=== PATIENT | female | born 1940 | race Caucasian/White ===

== ENCOUNTER 2022-02-18 09:23 | Outpatient (CLI) | payer OTHER, SELFPAY ==
[2022-02-18 10:34] LABS: Creatinine* 0.9 mg/dL (0.5-1.5); Estimated Glomerular Filt Rate 64 ml/min
== END 2022-02-18 09:24 | disposition home or self-care (01) ==
LOC: LKVREF 09:24
PROVIDERS: PCP Internal Medicine; Visit Provider Family Medicine
DX: Z79.899 Other long term (current) drug therapy (principal); J06.9 Acute upper respiratory infection, unspecified; J45.901 Unspecified asthma with (acute) exacerbation
CPT/HCPCS: 82565

== ENCOUNTER 2022-06-25 14:50 | Outpatient (CLI) | payer OTHER, SELFPAY ==
--- NOTE | 2022-06-25 15:00 | CRLHL7_ITS ---
For Patients: As a result of the Century Cures Act, medical imaging exams and procedure reports are released immediately into your electronic medical record. You may view this report before your referring provider. If you have questions, please contact your health care provider. INDICATION: Left lower extremity edema and pain TECHNIQUE: Ultrasound venous duplex lower left extremity. Compression venous exam was performed using mccann-scale, color Doppler, and spectral Doppler analysis. COMPARISON: None FINDINGS: Sonographic imaging demonstrates the left common femoral, deep femoral, superficial femoral, popliteal, posterior tibial and greater saphenous and the contralateral right common femoral veins to be fully compressible with normal color Doppler blood flow. 4.4 centimeter x 0.4 centimeter x 4.3 centimeter fluid lateral to the left lower leg. IMPRESSION: Normal left lower extremity venous ultrasound, no sign of deep venous thrombosis. 0.4 centimeter x 0.4 centimeter x 4.3 centimeter fluid adjacent to the left lateral lower leg. Dictated by Boyd Viera MD @ 06/25/2022 4:16:12 PM Dictated by: Boyd Viera MD @ 06/25/2022 16:16:18 (Electronically Signed)
== END 2022-06-25 14:51 | disposition home or self-care (01) ==
LOC: US 14:52
PROVIDERS: PCP Internal Medicine; Visit Provider Student in an Organized Health Care Education/Training Program
DX: R60.0 Localized edema (principal); M79.662 Pain in left lower leg
CPT/HCPCS: 93971

== ENCOUNTER 2022-07-14 16:46 | Outpatient (CLI) | payer OTHER, SELFPAY ==
[2022-07-14 14:28] LABS: Chloride* 108 mmol/L (96-114); Potassium* 4.2 mmol/L (3.6-5.1); Sodium* 139 mmol/L (135-149)
[2022-07-14 14:30] LABS: Creatinine* 0.8 mg/dL (0.5-1.5); Estimated Glomerular Filt Rate 74 ml/min
[2022-07-14 14:31] LABS: Blood Urea Nitrogen* 28 mg/dL (7-30); Calcium* 9.3 mg/dL (8.4-10.6); Carbon Dioxide* 26 mmol/L (20-32); Glucose* 121 mg/dL (60-115)
== END 2022-07-14 16:47 | disposition home or self-care (01) ==
PROVIDERS: PCP Internal Medicine; Visit Provider Internal Medicine
DX: E03.9 Hypothyroidism, unspecified (principal); I10 Essential (primary) hypertension; E11.9 Type 2 diabetes mellitus without complications; E66.9 Obesity, unspecified; I89.0 Lymphedema, not elsewhere classified
CPT/HCPCS: 80048; 84443

== ENCOUNTER 2023-01-20 13:00 | Outpatient (RCR) | payer OTHER, SELFPAY ==
--- NOTE | 2022-08-12 18:47 | OT.OPLE ---
OT Outpatient Lymphedema Eval OT Outpatient Lymphedema Eval Start: 08/11/22 16:49 Freq: Status: Active Protocol: Document 08/12/22 10:19 AMB (Rec: 08/12/22 18:42 AMB [id number]) E-signed By Lary Whyte, OTR/L, CLT, RAG BALER OT Outpatient Evaluation Details Type Type Eval Complexity Medium OT OP Lymphedema Evaluation Insurance Information Insurance Information Medicare B Current Condition/Medical Diagnosis Referring Provider Ina Rosas Treatment Diagnosis BLE lymphedema Date Of Onset Chronic Medical Contraindications DM,HTN,CA,Respiratory, Fibromyalgia,Arthritis Current Work Status Current Work Status Retired Subjective Subjective Pt states she has had swelling in her lower legs for approximately 8 years R>L. Pt states the swelling has been accompanied by pain, especially with pressure or squeezing. Pt states she has had cellulites several times in her LLE, not sure about the RLE. Pt does have a bill on her LLE just above her ankle, states she bumped it years abo and ended up with a hematoma and it left a permanent bill. Pt states her RLE is always red down in the lower part just above her ankle. Pt was seen in the Urgent care on with complaints of pain in her LLE, states they ruled out a DVT and cellulitis and just told her to wrap her legs . Pt has been wrapping both of her lower legs with an KATHY bandage, states they do feel better and she feels it helps the swelling some. P states her legs are always swollen but not her feet and the swelling worsens as the day progresses. Medical History Medical History Obesity,DM,HTN,Asthma/ Respiratory Disorder Medical History Comments PMH copied from MD visit on : Type 2 diabetes mellitus ( Acute) E11.9 Prediabetes Dxed 07/18, progressed to Diabetes type 2 07/19 Lymphedema of both lower extremities (Acute) I89.0 OT consult ordered 07/19 Hypothyroidism (Acute 04/19/11 ) E03.9 Fibromyalgia (Acute 04/19/11) M79.7 Esophageal dysmotility (Acute) K22.4 Delayed esophageal motility with tertiary distal esophageal contractions along with a tiny hiatal hernia seen on barium esophagram 11/14, structural defect ruled out by EGD here 12/15 that showed erythematous mucosa of the stomach and biopsies showed non erosive reactive gastropathy. Postnasal drip (Acute) R09.82 Chronic Obstructive sleep apnea syndrome (Acute 04/19/11) G47. 33 on CPAP (outside sleep study ), new machine 05/13 Chronic low back pain (Acute 04/19/11) M54.50, G89.29 Asthma (Acute 2010) J45.909 Dxed 2010 Anxiety (Acute 04/19/11) F41.9 Chronic, on SSRI since 2010, tapering off SSRI 11/11 Morbid obesity with body mass index (BMI) of 40.0 or higher (Acute) E66.01 History of breast cancer ( Acute) Z85.3 s/p left sided breast cancer with bilateral mastectomy late 2009 Essential hypertension (Acute) I10 Migraine (Acute) G43.909 Medical History (Updated 07/19 @ 11:54 by Ina Rosas MD) History of peptic ulcer (2014) History of sepsis (2010) Allergies bee venom protein (honey bee) Allergy (Verified 07/19/22 11: 06) corn Allergy (Verified 11:06) dog dander Allergy (Verified 07/19/22 11:06) phenylephrine [From Herbert- Synephrine (phenylephrine)] Allergy (Verified 07/19/22 11: 06) Swelling ragweed pollen Allergy ( Verified 07/19/22 11:06) tomato Allergy (Verified 07/19 11:06) Dust mites Allergy (Uncoded 11:06) Soybean oil Allergy (Uncoded 07/19/22 11:06) Surgical History Surgical History Surgical History (Updated @ 09:31 by Ina Rosas MD) History of basal cell carcinoma excision History of cholecystectomy () History of dilation and curettage (04/19/11) History of laminectomy () History of repair of rectocele (2018) History of thumb surgery (03/15) History of tonsillectomy (20/05) History of total knee replacement (2004) History of total shoulder replacement (2017) Rotator cuff tear arthropathy of right shoulder (2014) Squamous cell carcinoma in situ (SCCIS) of skin (2018) Status post cataract extraction (2015) Status post lumbar spinal fusion (04/19/11) Hx of Breast Cancer with mastectomy BLE TKA Medications Medications amiloride-hydrochlorothiazide 5-50 mg 0.5 tabs PO QDAY amitriptyline 20 mg (2 x 10 mg ) PO QHS qtdeuyz-xhqnxonlvaobj-xsmdjgog 250-250-65 mg 1 tab PO Q6H PRN atenolol 50 mg PO QDAY calcium carbonate 600 mg PO BID capsaicin 0.1% 0.1 applic topical .As Needed PRN epinephrine 0.3 mg (0.3 mL) IM ONCE PRN esomeprazole magnesium 40 mg PO BID fexofenadine 180 mg PO DAILY fluticasone propionate 50 mcg/ actuation 1 intranasal BID gabapentin 300 mg PO BID gabapentin 600 mg PO QHS hylbstut-xobitrwyzlr-lie C-Mn PO DAILY Lactobacillus acidophilus 10 mg PO QDAY levothyroxine 100 mcg PO QDAY melatonin 20 mg PO .Bedtime as needed PRN mometasone-formoterol 200-5 mcg/actuation (Dulera) 2 puffs inhalation BID montelukast 10 mg PO QDAY multivitamin (Multiple Vitamins tablet) 1 tab PO QAM olopatadine 0.1% 1 drp ophthalmic (eye) QDAY potassium chloride ER 20 mEq ( 2 x 10 mEq) PO QDAY pumpkin seed extract-soy germ 300 mg (Azo Bladder Control) caps PO DAILY sumatriptan succinate 50 mg PO Q2H PRN turmeric 630 mg PO DAILY Family History Family History of Lymphedema No Living Situation Current Living Situation Sr Condo Current Living Situation Comments Pt lives alone, lost her in 2008, pt has a son close by who is attentive, also has another son and daughter not in the area. Patient Difficulties Difficulties With Any Of The Following Walking Patient Difficulties Comments Pt states her walking has been harder with the swelling in her legs as they are heavy and rub. Pt uses a FWW for gait. Pt has had PT in the past to work on LE strength, balance, gait. Exercise History Does Patient Exercise Regularly Yes Exercise Comments Pt has a Nu-Step in her home, uses it 5-6x week on level 8-9 x 40 minutes. Pain Pain Yes Pain Comments Pt has pain with pressure / squeezing of her legs. Pain is much better with wraps on. Loss of Function/Strength/Mobility Loss Of Function/Strength/Mobility Yes Loss Of Function/Strength/Mobility Pt reports difficulty with Comments mobility due to the size of her legs. Previous Treatment Previous Treatment/Current Home Program KATHY wraps only Compression History Does Patient Currently Wear Compression Yes During Daytime Compression During Daytime Comments KATHY wraps Does Patient Currently Wear Compression No At Night Current Swelling (Location/Pitting/Texture) Pitting Scale: 0 = No pitting 1+ Tissue returns to normal almost immediately 2+ Tissue returns after 15-30 seconds 3+ Tissue returns after 1-1/2 minutes 4+ Tissue returns after 2-3 minutes N/A Tissue no longer pits due to induration Tissue texture: Soft or indurated Clinical Presentation Area BLE, much worse from ankles to the knee, feet are spared. Pt has a large ankle cuff in BLE . Multiple papillomas are noted throughout BLE, mild fibrosis in the lower part of the legs, near the ankle. Clinical Presentation Pitting Pt does not have pitting edema . Lower part of RLE is red, not necessarily warm to the touch, pt states It always looks like that. 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 Triggering Event & Start Date of Unknown. Swelling/Lymphedema Type of Swelling Primary Staging Staging Stage 3 Circumferential Measurements Lower Extremity Left Lower Extremity MPT 21.5 Calcaneous 29.8 Ankle 25.8 10cm 50.2 20cm 57.5 30cm 60.8 40cm 65.5 Total 311.1 Right Lower Extremity MPT 21.5 Calcaneous 29.6 Ankle 26.0 10cm 52.0 20cm 58.5 30cm 62.0 40cm 68.5 Total 318.1 Assessment Assessment Pt presents to OT with stage 3 lymphedema in BLE with likely mix of lipedema as well based on the sxs of pain with pressure, ankle sparing, and pt's body type with BMI of 52. 3. Pt has had multiple episodes of cellulitis and is at high risk for recurrent cellulitis without treatment. Pt is also at risk for further lymphedema related complications and feels her lymphedema has made walking more of a challenge and she had previous issues with balance. Pt will benefit from skilled OT intervention to reduce swelling in BLE as well as to establish home program that includes exercise, compression, and skin care for LT self management of her chronic disease. Impairments Impairments Loss of Mobility,Limb Heaviness,Poor Clothing Fit Problem List Problem List Limited Knowledge of Lymphedema Treatment/Condition /Precautions,Limited Knowledge of Skin Care & Infection Precautions,Significant Risk For Infection For Lymphedema Related Complications,Does Not Have a HEP,Does Not Know How To Bandage For Limb Reduction, Does Not Have Appropriate Compression Garments For LT Management,Presents With Increased Fall Risk Secondary To Lymphedema,Presents With Impaired Mobility/ROM Patient Goals Short Term Goals (# of Weeks) 8 Click To Default Short Term Goals Standard Goals Short Term Goals Goal 1: Patient and or caregiver will understand lymphedema precautions to decrease risk of infection and further lymphedema related complications Goal 2: Patient will develop a tolerance for wearing multi-layer, short stretch bandages between treatment sessions to facilitate limb decongestion Goal 3: Patient will be independent and compliant with HEP to improve lymphatic flow in BLE. Drum Filler Goals (# of Weeks) 12 Click To Default Alf Goals Standard Goals Drum Filler Goals Goal 1: Patient and/or caregiver will be independent with short-stretch compression bandaging for continued volume reduction and prevention of recurrence 2. Pt will obtain appropriate compression garment for LT management of her lymphedema. Goal 3: Patient will be independent with donning and doffing of compression garments which will enable regular daily garment wear Goal 4: Patient will achieve a reduction of at least 10cm from total measurements in BLE to enable functional improvements such as fitting into standard sized clothing and shoes, return to a prior level of functional mobility, improved balance, and reduced risk of falling. Goal 5: Patient and/or caregiver will be independent with HEP, skin care routine, self monitoring and lymphedema management to reduce risk for edema relapse and to reduce risk for infection Treatment Plan Treatment Plan Evaluation,Edema Control, Manual Therapy,Therapeutic Exercise,Therapeutic Activities,Self-Care/Home Management,Caregiver Training, Education Expected Frequency 2-3x Week Expected Duration 10-12 wks Certification Certification I Certify That: Therapy Services Provided, Therapy Plan Established, Therapy Plan Reviewed Recertification Information Recertification Information Initial Certification Date 08/12/22 Recertification Due Date 11/10/22 Reasons to Continue Skilled Therapy Initiated skilled OT intervention today to address lymphedema in BLE with high risk for cellulitis and further lymphedema related complications. Heaviness in pt's LEs also increases her fall risk, especially since she requires a walker for mobility. Rehabilitation Potential Good Continued Plan of Care and Interventions See above Provider Signature Shows Agreement With POC & Medical Necessity Physician Comment/Change Comment or Changes Physician NPI Number #
== END 2023-05-20 23:59 | disposition home or self-care (01) ==
PROVIDERS: PCP Internal Medicine; Visit Provider Internal Medicine
DX: I89.0 Lymphedema, not elsewhere classified (principal); Z51.89 Encounter for other specified aftercare
CPT/HCPCS: 97110; 97140; 97166; 97530; 97535; X5282

== ENCOUNTER 2023-08-16 13:00 | Outpatient (RCR) | payer OTHER, SELFPAY ==
--- NOTE | 2023-03-18 15:42 | PT.OPEX ---
PT [place] Outpatient Eval PT [facility] Outpatient Eval Start: 03/16/23 14:48 Freq: Status: Active Protocol: Document 03/16/23 14:53 OSIEL (Rec: 03/16/23 17:23 OSIEL [id number]) E-signed By Eleanor Damon PT Physical Therapy Outpatient Evaluation Insurance Information Recert Due Date 06/13/23 Insurance Name Medicare B Insurance Information/Comments HUMAN GOLD Medical Diagnosis RIGHT GROIN STRAIN Treating Diagnosis RIGHT HIP/GROIN PAIN IMPAIRED MOBILITY IMPAIRED BALANCE DECREASED STRENGTH Subjective Subjective PATIENT REPORTS A SUDDEN CHANGE IN HER ABILITY TO RAISE HER RIGHT LEG D/T SIGNIFICANT PAIN IN HER GROIN. SHE STATES , I NOW HAVE TO USE THIS GAIT BELT TO GET IN/OUT OF WHOMEVER IS DRIVING ME THAT DAY B/C I CAN SAFELY DRIVE RIGHT NOW. SHE REPORTS NOT BEING ABLE TO PARTICIPATE IN HER REGULAR EXERCISE CLASS NOR STEP IN/OUT OF HER TUB. 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 PMHX INCLUDES BUT NOT LIMITED TO RIGHT HIP OA, LYMPHEDEMA, DMII, H/O BREAST CANCER (2010) W/ BILATERAL MASTECTOMY, HYPOTHYROIDISM, FIBROMYALGIA, KHUSHBU WITH CPAP, CHRONIC LBP, H/ O LUMBAR FUSION, ASTHMA, ANXIETY, HTN, H/O MIGRAINES, H /O RIGHT TSA, H/O BILATERAL TKA. SHE USES A ROLLATOR FOR AMB AND LIVES ALONE IN A ONE- STORY [place]DO W/O STEPS TO ENTER AND ALL HER NEEDS MET ON THAT ONE FLOOR. PATIENT REPORTS RECENT OVEREXERTION LIFTING HER RIGHT LEG RELATED TO AN EXACERBATION OF HER BLE LYMPHEDEMA AND EXPERIENCING PAIN IN HER GROIN/HIP REGION. SHE IS UNABLE TO LIFT HER LEG TO GET IN/OUT OF CAR, IN/OUT OF BED W/O A GAIT BELT TO ASSIST AND UNABLE TO STEP IN / OUT OF THE TUB REQUIRING HER TO CLEAN UP IN THE BATHROOM SINK. BOTH LEGS ARE RATHER LARGE D/T THE LYMPHEDEMA AND ROM ASSESSMENT IS DIFFICULT D/ T THE CONFINEMENT OF THE COMPRESSION GARMENTS. HER BLE STRENGTH IS 3/5. SHE HAD BEEN PARTICIPATING IN AN ORGANIZED EXERCISE CLASS BUT NOT ONLY IS SHE UNABLE TO PARTICIPATE BUT IS ALSO UNABLE TO SAFELY DRIVE REQUIRING ASSISTANCE FROM FRIEND TO DRIVE HER. HE IS UNABLE TO STRAIGHT HER RIGHT LEG >30 DEGREES IN A SEATED POSITION W/O SIGNIFICANT GROIN PAIN NOR IS SHE ABLE TO LIFT HER LEG IN A HOOKLYING POSITION OFF THE TABLE. SHE HAS NORMAL HIP MOTION WHEN PASSIVE STRETCH AND IS LIMITED SIMPLY BY PAIN AND NOW, WEAKNESS. SHE REPORTS IMPROVEMENT IN THE PAST 3 WEEKS BUT IS UNABLE TO USE ALEVE OR TYLENOL CONSISTENTLY D/T HER STOMACH ISSUES. SHE IS HERE TODAY TO IMPROVE HER SYMPTOMS, STRENGTH, AND FUNCTIONAL MOBILITY TO ALLOW HER TO RETURN TO HER PLOF. Primary Functional Limitations TRANSFERS (STS, SUPINE<>SIT, CAR, TUB) STDG >3-4 MIN STAIRS GAIT STRENGTH PAIN Plan of Care Rehabilitation Potential Good Physical Therapy Goals IN 4 WEEKS: 1. PATIENT WILL DEMONSTRATE IMPROVED BLE STRENGTH TO TRANSFER IN/OUT OF CAR W/O NEED FOR STRAP. 2. PATIENT WILL IMPROVE POSTURAL STRENGTH TO ALLOW HER TO STAND UPRIGHT CONSISTENTLY UPON STAND. 3. PATIENT WILL AMB 200FT W/ ROLLATOR NOTING IMPROVED FOOT CLEARANCE W/O SIT DOWN RECOVERY NEEDED. IN 8-10 WEEKS: 1. PATIENT WILL IMPROVE HER CORE AND BLE STRENGTH TO STAND FOR MEAL PREP AT THE STOVE TO ALLOW FOR BETTER NOURISHMENT. 2. PATIENT WILL IMPROVE STRENGTH TO ALLOW SAFE TRANFER IN/OUT OF TUB FOR BATHING INDEPENDENTLY 3. PATIENT WILL AMB FOR 6MIN WITH ROLLATOR SAFELY AND CONSISTENTLY TO ALLOW FOR LIMITED COMMUNITY AMB. 4. PATIENT WILL BE INDEPENDENT WITH HER HEP. Coordination/Communication With Referral Source Treatment Plan/Direct Interventions Joint Mobilization,Manual Therapy,Neuromuscular Re-ed, Therapeutic Activities, Therapeutic Exercises Patient Will Be Discharged From Therapy Completion of LTG(s), Independent w/HEP Discharge Plan Comments DISCHARGE TO SELF W/ INDEPENDENT HEP Evaluation Billing Untimed Code Treatment Minutes 25 PT Eval No Charge No Complexity High Certification Information Initial Certification Date 03/16/23 Ending Certification Date 06/13/23 Provider Signature Shows Agreement With POC & Medical Necessity Physician Signature & Date Requested Please Sign/Date Here Physician Comment/Change : Physician NPI Number #
--- NOTE | 2023-06-15 17:06 | PT.OPDNX ---
PT [place] Outpatient Daily Note PT [facility] Outpatient Daily Note Start: 03/16/23 14:48 Freq: Status: Active Protocol: Document 06/15/23 14:32 OSIEL (Rec: 06/15/23 17:05 OSIEL [id number]) E-signed By Eleanor Damon, PT PT OP Daily Progress Note Visit Information Note Type Recert/Progress Note Visit Number [id number] Insurance Information Recert Due Date 06/13/23 Insurance Name Medicare B Insurance Information/Comments HUMAN GOLD Medical Diagnosis RIGHT GROIN STRAIN Treating Diagnosis RIGHT HIP/GROIN PAIN IMPAIRED MOBILITY IMPAIRED BALANCE DECREASED STRENGTH Subjective Subjective PATIENT REPORTS, I'VE BEEN ABLE TO GET SOME SLEEP SO FEEL SO GOOD TODAY. Preferred Name DERRELL Precautions Treatment Precautions/Contraindications SELF WRAPPING AND PNEUMATIC DEVICE FOR HER LYMPHEDEMA TREATMENT, DMII Objective Functional Test Performed & Score TUSEC TINETTI 12/2205/23/23: TUG W/SPC 28SEC; 30 SEC STS 9 06/15/23: TUG W/SPC 22 SEC; ROQUE 30/56, GT SPEED NORMAL WALKING 1.2 FT/SEC, FAST WALKING 1.7 FT/SEC Physical Therapy Goals IN 4 WEEKS: 1. PATIENT WILL DEMONSTRATE IMPROVED BLE STRENGTH TO TRANSFER IN/OUT OF CAR W/O NEED FOR STRAP. GOAL MET 2. PATIENT WILL IMPROVE POSTURAL STRENGTH TO ALLOW HER TO STAND UPRIGHT CONSISTENTLY UPON STAND. GOAL MET 3. PATIENT WILL AMB 200FT W/ ROLLATOR NOTING IMPROVED FOOT CLEARANCE W/O SIT DOWN RECOVERY NEEDED. GOAL MET IN 8-10 WEEKS: 1. PATIENT WILL IMPROVE HER CORE AND BLE STRENGTH TO STAND FOR MEAL PREP AT THE STOVE TO ALLOW FOR BETTER NOURISHMENT. GOAL MET 2. PATIENT WILL IMPROVE STRENGTH TO ALLOW SAFE TRANSFER IN/OUT OF TUB FOR BATHING INDEPENDENTLY GOAL MET 3. PATIENT WILL AMB FOR 6MIN WITH ROLLATOR SAFELY AND CONSISTENTLY TO ALLOW FOR LIMITED COMMUNITY AMB. 4. PATIENT WILL BE INDEPENDENT WITH HER HEP. PARTIALLY MET RECERTIFICATION GOALS 06/15/23: IN 4-6 WEEKS: 1. PATIENT WILL AMB 200' W/O A RECOVERY BREAK NEEDED USING SPC FOR LIMITED COMMUNITY AMB, GROCERY SHOPPING, ETC. 2. PATIENT WILL DEMONSTRATE IMPROVED STRENGTH BY INCREASING HER STS FROM 9 TO 12 IN 30 SEC 3. PATIENT WILL DEMONSTRATE IMPROVED BALLANCE BY IMPROVING HER TUG BY 15% FROM 22 TO 19 SEC LTG WITH IN 10-12 WEEKS: 1. PATIENT WILL AMB 6 MIN W/O STDG RECOVERY BREAK AND A DISTANCE OF 400' FOR FULL COMMUNITY REENTRY. 2. PATIENT WILL IMPROVE FUNCTIONAL BALANCE BY INCREASING HER ROQUE SCORE OF 30 TO 40/56 3. PATIENT WILL IMPROVE HER IMPROVE HER TUG FROM 19 TO 15SEC DECREASING HER RISK FOR FALLS. Daily Plan of Care Continue per POC Recertification Information Initial Certification Date 03/16/23 Recertification Start Date 06/14/23 Recertification Due Date 06/13/23 Reasons to Continue Skilled Therapy DERRELL IS PARTICIPATING IN A COMPREHENSIVE AND INDIVIDUALIZED PROGRAM TO ADDRESS HER INITIAL RIGHT GROIN STRAIN RELATED TO AN EXACERBATION OF HER LYMPHEDEMA .THIS LIMITED HER ABILITY TO SAFELY AMB LIMITED COMMUNITY DISTANCES, INABILITY TO PERFORM CAR, BED, AND TUB TRANSFERS D/T THE INCREASED WEIGHT OF HER LEG AND STRAIN OF HER MUSCULATURE. SHE HAD BEEN AMB LIMITED DISTANCES WITH HER ROLLATOR AND PARTICIPATING LIMITED WITH HER EXERCISE CLASS D/T THE INABILITY TO PERFORM THE EXERCISES. SHE SINCE RETURNED TO THE CLASSES AND CAN PARTICIPATE FULLY WITH SEVERAL ADAPTATION AND IS ABLE TO INDEPENDENTLY PERFORM CAR AND BED TRANSFERS W/O THE USE OF STRAP. SHE HAS IMPROVED NOT ONLY IN HER STRENGTH BUT ALSO HER FUNCTIONAL BALANCE EVIDENCED BY A TUG SCORE OF 22 SEC USING A SPC FROM 72 SEC USING ROLLATOR AND FROM 3 TO 9 ON THE 30 SEC STS TEST. LASTLY, SHE SCORED A 30/56 ON THE ROQUE BALANCE TEST TODAY WHICH SHE HAS NOT BEEN ABLE TO PERFORM SAFELY UNTIL NOW. HOWEVER, HER SCORE CATEGORIZES HER A 100%RISK FOR FALLS AND IN NEED OF AN ASSISTIVE DEVICE FOR ALL AMB. WE ARE ABLE TO ADVANCE HER BLE AND CORE STRENGTHENING WELL ADD FUNCTIONAL BALANCE CHALLENGES EA VISIT. SHE DEMONSTRATES MUCH IMPROVED TOLERANCE AND FUNCTIONAL BALANCE TO AMB WITH SPC PERFORMING THE 6 MIN WALK TEST SCORING 300' WITH 2-30 SEC STDG REST BREAKS. SHE WOULD BENEFIT FROM CONTINUED SKILLED PHYSICAL THERAPY FOR CONTINUED STRENGTHENING, FUNCTIONAL BALANCE, AND MOBILITY TO ALLOW HER TO NAVIGATE COMMUNITY DISTANCES NEEDED FOR PEER AND FAMILY CENTERED ACTIVITIES SAFELY WITH THE DECREASED RISK FOR FALLS. Rehabilitation Potential EXCELLENT Continued Plan of Care and Interventions FUNCTIONAL STRENGTHENING, STATIC AND DYNAMIC BALANCE TRAINING, GT Provider Signature Shows Agreement With POC & Medical Necessity
== END 2023-09-06 10:19 | disposition home or self-care (01) ==
PROVIDERS: PCP Internal Medicine; Visit Provider Internal Medicine
DX: R10.31 Right lower quadrant pain (principal); S76.811A Strain of other specified muscles, fascia and tendons at thigh level, right thigh, initial encounter; M25.551 Pain in right hip; R29.898 Other symptoms and signs involving the musculoskeletal system; R26.81 Unsteadiness on feet; R53.1 Weakness; Z51.89 Encounter for other specified aftercare
CPT/HCPCS: 97110; 97112; 97116; 97140; 97163

== ENCOUNTER 2023-09-07 10:56 | Outpatient (CLI) | payer OTHER, SELFPAY | END 2023-09-07 10:57 | disposition home or self-care (01) | LOC: NFLDREF 09-16 12:23 | PROVIDERS: PCP Internal Medicine; Referring Provider Internal Medicine; Visit Provider Internal Medicine | DX: E11.9 Type 2 diabetes mellitus without complications (principal); E03.9 Hypothyroidism, unspecified; I10 Essential (primary) hypertension | CPT/HCPCS: 80048; 82043; 82570; 84439; 84443 ==

== ENCOUNTER 2023-09-28 14:11 | Outpatient (CLI) | payer OTHER, SELFPAY ==
--- NOTE | 2023-09-28 14:30 | MR_ITS ---
Patient: DERRELL WELLER Facility:?[facility] Patient ID:?[id number] Site Patient ID:?[id number]. Site :?[id number] Study:?MRI-Spine Lumbar w/o-09/28/2023 3:06:33 PM Ordering Physician:Sammi Beltran Final Report: Indication: Low back pain Technique: Multiplanar, multisequence, MRI of the lumbar spine, obtained without contrast. Comparison: MRI lumbar spine 06/15/2021 Findings: Levoscoliosis, apex at L3, with preserved lumbar lordosis. Right lateral listhesis and partial bony ankylosis across L1-2. Right lateral listhesis and trace retrolisthesis at L2-3. Left lateral listhesis L4 on L5. Posterior transpedicular screw and leo fusion changes from L3-S1, with mature bony ankylosis. No acute osseous abnormality. Modic type 1 opposing endplate changes at T10-11 and T12-L1. Otherwise, unremarkable bone marrow signal. Conus medullaris terminates at L1-2. No suspicious findings identified in the paraspinal soft tissues. Prominent right renal pelvis cyst. Degenerative changes at the included SI joints. T9-T10: Sagittal images demonstrate disc-osteophyte complex and facet arthropathy. No left, mild right neural foraminal narrowing. Mild-moderate spinal canal narrowing. T10-T11: Sagittal images demonstrate diffuse disc-osteophyte complex and facet arthropathy. No right, moderate left neural foraminal stenosis. At least moderate spinal canal stenosis. T11-T12: Diffuse, left eccentric disc-osteophyte complex, facet arthropathy. No significant neural foraminal stenosis. Mild spinal canal narrowing. T12-L1: Diffuse disc-osteophyte complex, facet arthropathy. No right, moderate left neural foraminal stenosis. Mild-moderate spinal canal narrowing. L1-L2: Right eccentric disc-osteophyte complex, bony ankylosis, facet arthropathy. No neural foraminal or spinal canal stenosis. L2-L3: Right eccentric disc-osteophyte complex, facet arthropathy. No neural foraminal or spinal canal stenosis. L3-L4: Postop changes, ankylosis, facet arthropathy. No left, mild-moderate right neural foraminal narrowing. No spinal canal stenosis. L4-L5: Postop changes, ankylosis, facet arthropathy. No right, mild left neural foraminal narrowing. Laminectomy decompression of the spinal canal. L5-S1: Postop changes, ankylosis, facet arthropathy. No right, mild left neural foraminal narrowing. Laminectomy decompression of the spinal canal. Impression: 1. 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 2. Levoscoliosis, multilevel spondylolisthesis, spondylosis and Modic endplate changes as detailed. 3. At T9-T10, mild-moderate spinal canal narrowing. 4. At T10-T11, at least moderate spinal canal stenosis, with moderate left neural foraminal stenosis. 5. At T12-L1, mild-moderate spinal canal narrowing, with moderate left neural foraminal stenosis. 6. At L3-L4, mild-moderate right neural foraminal narrowing. Dictated by Anuja Ayala MD @ 09/29/2023 2:21:12 PM Signed by:?Anuja Ayala MD @09/29/2023 2:21:12 PM (Electronic Signature)
== END 2023-09-28 14:12 | disposition home or self-care (01) ==
LOC: MRI 14:12
PROVIDERS: PCP Internal Medicine; Visit Provider Nurse Practitioner
DX: M54.50 Low back pain, unspecified (principal); M43.14 Spondylolisthesis, thoracic region; M48.04 Spinal stenosis, thoracic region; M51.26 Other intervertebral disc displacement, lumbar region; M46.1 Sacroiliitis, not elsewhere classified
CPT/HCPCS: 72148

== ENCOUNTER 2023-10-25 13:30 | Outpatient (CLI) | payer OTHER, SELFPAY ==
--- OUTSIDE RECORDS SUMMARY | 2023-10-26 06:29 | XMS_ITS | Clinical Summary ---
Author Name Unknown Organization [facility] Address [place], [place] [address] Care Team Providers Care Hop Strainer Name Role Phone Ina Rosas MD Primary Care Provider [phone]- [phone] Allergies Active Allergy Reactions Criticality Noted Date Comments Oxymetazoline Edema 01/25/2018 Medications Medication Sig Dispensed Refills Start Date End Date Status amitriptyline (ELAVIL) 10 mg tablet 11/30/2017 Active aMILoride-hydrochlor othiazide, 5-50 mg, (MODURETIC) tablet 12/14/2017 Active amoxicillin (AMOXIL) 500 mg capsule Before dental procedures 12/05/2017 Active atenolol (TENORMIN) 50 mg tablet 11/16/2017 Active esomeprazole (NEXIUM) 40 mg capsule 12/27/2017 Active fluticasone (50 mcg per actuation) nasal solution (FLONASE) 11/14/2017 Active gabapentin (NEURONTIN) 300 mg capsule 11/16/2017 Active gabapentin (NEURONTIN) 600 mg tablet 11/16/2017 Active SYNTHROID 100 mcg tablet 11/29/2017 Active DULERA 200-5 mcg/actuation inhaler 11/14/2017 Active montelukast (SINGULAIR) 10 mg tablet 11/30/2017 Active potassium chloride (MICRO-K) 10 mEq Controlled-release capsule 11/22/2017 Active Social History Tobacco Use Types Packs/Day Years Used Date Smoking Tobacco: Never Smokeless Tobacco: Never Sex and Gender Information Value Date Recorded Sex Assigned at Not on file Gender Identity Not on file Sexual Orientation Not on file Obstetrics History Last Filed Vital Signs Vital Sign Reading Time Taken Comments Blood Pressure 122/88 02/08/2018 2:46 PM CDT Pulse 64 02/08/2018 2:46 PM CDT Temperature - - Respiratory Rate 20 02/08/2018 2:46 PM CDT Oxygen Saturation 99% 02/08/2018 2:46 PM CDT Inhaled Oxygen Concentration - - Weight 117.9 kg (260 lb) 01/25/2018 1:17 PM CDT Height - - Body Mass Index - - Plan of Treatment Health Maintenance Due Date Last Done Comments Tdap 02/14/1951 Depression screening for age 12+ 1953 BMI (ht and wt on same day) for age 18+ 1959 Tetanus booster 1961 Zoster (shingles) series for age 50+ (1 of 2) 1991 DEXA/DXA scan for age 65+ 2006 Medicare Wellness for age 65+ 2006 Pneumococcal series for age 65+ (1 of 1 - PCV) 2006 COVID-19 vaccine series (2022-24 season) 2023 03/18/2022, 10/20/2021, 06/15/2021, Additional history exists Influenza for age 65+ 02/26/2024 Care Teams Hop Strainer Relationship Specialty Start Date End Date Ina Rosas MD [address] [place] [address] PCP - General Internal Medicine 05/06/16
== END 2023-10-25 13:31 | disposition home or self-care (01) ==
LOC: NFLDREF 10-26 06:28
PROVIDERS: PCP Internal Medicine; Referring Provider Internal Medicine; Visit Provider Internal Medicine
DX: E03.9 Hypothyroidism, unspecified (principal)
CPT/HCPCS: 84439; 84443

== ENCOUNTER 2024-02-06 10:45 | Outpatient (CLI) | payer OTHER, SELFPAY ==
--- OUTSIDE RECORDS SUMMARY | 2024-02-09 12:31 | XMS_ITS | Clinical Summary ---
Author Organization [facility] Address [place], [place] [address] Care Team Providers Care Platform Beater Name Role Phone Ina Rosas MD Primary Care Provider +1- [phone] Allergies Active Allergy Reactions Criticality Noted Date [...] (MICRO-K) 10 mEq Controlled-release capsule 11/22/2017 Active Encounters Date Type Department Care Team Description 01/30/2024 12:00 PM CDT Office Visit [facility] [address] [place] [address] Anika Hirsch AuD Hearing Aid (MARRUFO check) 01/30/2024 Travel 01/03/2024 1:30 PM CDT Office Visit [facility] [address] [place] [address] Bennie Trujillo, [facility] (Fitting) 01/03/2024 Travel 11/29/2023 3:30 PM CDT Office Visit [facility] [address] [facility] [place] [address] Bennie Trujillo, [facility] (Consultation) 11/29/2023 2:30 PM CDT Office Visit [facility] [address] [place] [address] Bennie Trujillo, AuD Hearing Problem 11/29/2023 Travel from Last 3 Months Social History Tobacco Use Types Packs/Day Years [...] Mass Index - - Plan of Treatment Upcoming Encounters Date Type Department Care Team (Late st Contact Info) Description 02/16/2024 11:00 AM CDT Office Visit [facility] [address] [place] [address] Anika Hirsch AuD [address] [place] [address] 03/22/2024 11:30 AM CDT Office Visit [facility] [address] [place] [address] Tulio Redmond MD [address] [facility] [place] [address] Health Maintenance Due Date Last Done Comments Tdap 02/14/1951 Depression screening for age 12+ 1953 BMI (ht and wt on same day) for age 18+ 1959 Tetanus booster 1961 Zoster (shingles) series for age 50+ (1 of 2) 1991 DEXA/DXA scan for age 65+ 2006 Medicare Wellness for age 65+ 2006 Pneumococcal series for age 65+ (1 of 1 - PCV) 2006 Influenza for age 65+ 02/26/2024 COVID-19 vaccine series Completed 10/19/19, 04/01/2023, 03/18/2022, Additional history exists Care Teams Platform Beater Relationship Specialty Start Date End Date Ina Rosas MD [address] [place] [address] PCP - General Internal Medicine 05/06/16
== END 2024-02-06 10:46 | disposition home or self-care (01) ==
LOC: NFLDREF 02-09 12:30
PROVIDERS: PCP Internal Medicine; Referring Provider Internal Medicine; Visit Provider Internal Medicine
DX: E03.9 Hypothyroidism, unspecified (principal)
CPT/HCPCS: 84443

== ENCOUNTER 2024-05-16 14:59 | Emergency (ER) | payer OTHER, SELFPAY ==
[2024-05-16] VITALS (9 sets, daily range): BP systolic 157–179; BP diastolic 86–97; PULSE 57–93; RESP 16–20; TEMP 36.6; O2SAT 93–100; BMI 48.8
--- NOTE | 2024-05-16 15:48 | CRLHL7_ITS ---
For Patients: As a result of the Cures Act, medical imaging exams and procedure reports are released immediately into your electronic medical record. You may view this report before your referring provider. If you have questions, please contact your health care provider. INDICATION: : Lower extremity edema COMPARISON: Chest radiograph on June 30, 2017 TECHNIQUE: One view(s) of the chest FINDINGS/IMPRESSION: Cardiomegaly with mild pulmonary vascular congestion without overt pulmonary edema. There is no focal airspace consolidation, pleural effusion, or pneumothorax. Similar-appearing minimal atelectasis/scarring seen in the left lower lung zone. No displaced fractures. Right reverse shoulder arthroplasty. Dictated by Jim Tay MD @ 05/16/2024 4:39:24 PM (Electronically Signed)
--- OUTSIDE RECORDS SUMMARY | 2024-05-16 15:57 | XMS_ITS | Clinical Summary ---
Author Organization [facility] Address [place], [place] [address] Care Team Providers Care Weekend Receptionist Name Role Phone Ina Rosas MD Primary Care Provider +1- [phone] Allergies Active Allergy Reactions Criticality Noted Date Comments Oxymetazoline Edema 01/25/2018 Medications Medication Sig Dispensed Refills Start Date End Date Status amitriptyline (ELAVIL) 10 mg tablet 11/30/2017 Act mauro aMILoride-hydrochloro thiazide, 5-50 mg, (MODURETIC) tablet 12/14/2017 Active atenolol (TENORMIN) 50 mg tablet 11/16/2017 Active esomeprazole (NEXIUM) 40 mg capsule 12/27/2017 Active fluticasone (50 mcg per actuation) nasal solution (FLONASE) 11/14/2017 Active gabapentin (NEURONTIN) 300 mg capsule 11/16/2017 Active gabapentin (NEURONTIN) 600 mg tablet 11/16/2017 Active SYNTHROID 100 mcg tablet 11/29/2017 Active DULERA 200-5 mcg/actuation inhaler 11/14/2017 Act mauro montelukast (SINGULAIR) 10 mg tablet 11/30/2017 Active potassium chloride (MICRO-K) 10 mEq Controlled-release capsule 11/22/2017 Active CPAPIndications:KHUSHBU (obstructive sleep apnea) RESMED CPAP (E0601) machine for home use at pressure: 5-15cmw, Choice of mask (A7030 or A7034) w/full face cushion (A7031) x1/mo, nasal cushion (A7032) x2/mo, or nasal pillows (A7033) x 2/mo; Length of Need: 99 months; Frequency of use: Daily 1 Each 11 03/22/2024 Active Active Problems Problem Noted Date Diagnosed Date KHUSHBU 2/3/79246 AHI- 15 03/22/2024 Encounters Date Type Department Care Team Description 03/22/2024 11:30 AM CDT Office Visit [facility] [address] [place] [address] Tulio Redmond MD Sleep Follow-up 03/22/2024 Travel from Last 3 Months Social History Tobacco Use Types Packs/Day Years Used Date Smoking Tobacco: Never Smokeless Tobacco: Never Sex and Gender Information Value Date Recorded Sex Assigned at Not on file Gender Identity Not on file Sexual Orientation Not on file Obstetrics History Last Filed Vital Signs Vital Sign Reading Time Taken Comments Blood Pressure 121/76 03/22/2024 11:09 AM CDT Pulse 56 03/22/2024 11:09 AM CDT Temperature - - Respiratory Rate 20 02/08/2018 2:46 PM CDT Oxygen Saturation 98% 03/22/2024 11: 09 AM CDT Inhaled Oxygen Concentration - - Weight 119.7 kg (263 lb 12.8 oz) 2023 11:09 AM CDT Height 152.4 cm (5') 03/22/2024 11:09 AM CDT Body Mass Index 51.52 03/22/2024 11:09 AM CDT Plan of Treatment Health Maintenance Due Date Last Done Comments Tdap 02/14/1951 Depression screening for age 12+ 1953 Tetanus booster 1961 Zoster (shingles) series for age 50+ (1 of 2) 1991 DEXA/DXA scan for age 65+ 2006 Medicare Wellness for age 65+ 2006 Pneumococcal series for age 65+ (1 of 1 - PCV) 2006 RSV vaccine for adults or (1 - 1-dose 75+ series) 02/14/2016 Influenza for age 65+ 02/26/2024 BMI (ht and wt on same day) for age 18+ 03/22/2025 03/22/2024 COVID-19 vaccine series Completed 03/16/20 24, 10/19/2023, 04/01/2023, Additional history exists Care Teams Weekend Receptionist Relationship Specialty Start Date End Date Ina Rosas MD [address] [place] [address] PCP - General Internal Medicine 05/06/16
[2024-05-16 16:21] LABS: Basophils Absolute Auto 0.04 K/uL (0.00-0.30); Basophils Percent Auto 0.5 % (0.0-3.0); Eosinophils Absolute Auto 0.14 K/uL (0.00-0.50); Eosinophils Percent Auto 1.7 % (0.0-7.0); Hematocrit 38.6 % (33.0-51.0); Immature Granulocytes Abs Auto 0.02 K/uL (0.00-0.30); Immature Granulocytes Pct Auto 0.2 %; Lymphocytes Percent Auto 15.5 % (20-44); Mean Corpuscular HGB Conc 31 gm/dL (32-36); Mean Corpuscular Hemoglobin 30 pg (26-34); Mean Corpuscular Volume 97 fL (80-100); Monocytes Percent Auto 10.2 % (0.0-11.0); Neutrophils Absolute Auto 5.87 K/uL (1.7-7.0); Neutrophils Percent Auto 71.9 % (42.0-72.0); Platelet Count* 208 K/uL (140-440); RDW Coefficient of Variation % 14.4 % (11.5-15.5); Red Blood Count 3.98 m/uL (4.00-5.20); White Blood Count* 8.17 K/uL (4.50-11.00)
[2024-05-16 16:25] LABS: Albumin* 3.8 g/dL (3.3-5.0); Chloride* 105 mmol/L (96-114)
--- NOTE | 2024-05-16 16:25 | ED_ITS ---
HPI - General Adult General Date Seen: 05/16/24 Chief complaint: Edema Stated complaint: edema in feet Time Seen by Provider: 05/16/24 15:35 Source: patient Mode of arrival: ambulatory Limitations: no limitations History of Present Illness HPI narrative: patient is an 84-year-old female with a history of chronic lymphedema in her bilateral lower extremities presenting to emergency department now for swelling to her bilateral feet. States she has never had issues of swelling in her feet before but started noticing swelling about 1 week ago. she has also noticed 2 small blisters 1 on each foot that have popped and drained some clear fluid. Denies fevers, chills, headache, chest pain, shortness of breath, lightheadedness, dizziness, weakness. Spoke to Dr. Rosas's office about this and was told to come to the emergency department. Does note symptoms have improved over the past few days. no other concerns noted. Is otherwise asymptomatic she states. Does manage her chronic lymphedema home with the wraps and a machine that she uses. no history of heart disease but does have a history of hypertension. Related Data Home Medications ?Medication ?Instructions ?Recorded ?Confirmed olopatadine 0.1 % eye drops 1 drp ophthalmic (eye) QDAY 05/06/22 09/12/23 Lactobacillus acidophilus 1 10 mg PO QDAY 07/19/22 09/12/23 billion cell capsule bmcniyp-episnjglbeclh-jyrfsddy 250 1 tab PO Q6H PRN 07/19/22 09/12/23 mg-250 mg-65 mg tablet calcium carbonate 600 mg PO BID 07/19/22 09/12/23 capsaicin 0.1 % topical cream 0.1 applic topical .As Needed PRN 07/19/22 09/12/23 fexofenadine 180 mg tablet 180 mg PO DAILY 07/19/22 09/12/23 gnoirrxq-prttovngkpo-dpf C-Mn PO DAILY 07/19/22 09/12/23 melatonin 5 mg capsule 20 mg PO .Bedtime as needed PRN 07/19/22 09/12/23 multivitamin (Multiple Vitamins 1 tab PO QAM 07/19/22 09/12/23 tablet) turmeric 400 mg capsule 630 mg PO DAILY 07/19/22 09/12/23 cholecalciferol (vitamin D3) 50 50 mcg PO QDAY 09/12/23 09/12/23 mcg (2,000 unit) tablet guaifenesin 1,200 mg tablet, 1,200 mg PO QHS 09/12/23 09/12/23 extended release 12 hr (Mucinex) Previous Rx's ?Medication ?Instructions ?Recorded epinephrine 0.3 mg/0.3 mL 0.3 mg (0.3 mL) IM ONCE PRN 01/25/22 injection, auto-injector anaphylaxis #2 ea sumatriptan succinate 50 mg tablet 50 mg PO Q2H PRN migraine headache 05/04/22 #9 tabs esomeprazole magnesium 40 mg 40 mg PO BID #180 caps 09/12/23 capsule,delayed release prednisone 20 mg tablet 20 mg PO QDAY #7 tabs 09/12/23 amitriptyline 10 mg tablet 20 mg (2 x 10 mg) PO QPM #180 tabs 10/19/23 atenolol 50 mg tablet 50 mg PO QDAY #90 tabs 10/19/23 gabapentin 600 mg tablet 600 mg PO QHS #90 tabs 10/19/23 amiloride 5 mg-hydrochlorothiazide 0.5 tab PO QDAY #45 tabs 10/20/23 50 mg tablet gabapentin 300 mg capsule 300 mg PO BID #180 caps 10/31/23 fluticasone propionate 50 1 spray intranasal BID #16 grams 11/02/23 mcg/actuation nasal spray,suspension potassium chloride 10 mEq 20 meq (2 x 10 mEq) PO QDAY #180 11/07/23 capsule,extended release caps levothyroxine 150 mcg tablet 150 mcg PO QDAY #90 tabs 11/08/23 mometasone-formoterol HFA 200 2 puff inhalation BID #8.8 grams 03/19/24 mcg-5 mcg/actuation aerosol inhaler (Dulera) montelukast 10 mg tablet 10 mg PO QDAY #90 tabs 03/20/24 Allergies Allergy/AdvReac Type Severity Reaction Status Date / Time bee venom protein (honey bee) Allergy Verified 09/12/23 10:26 corn Allergy Verified 09/12/23 10:26 dog dander Allergy Verified 09/12/23 10:26 phenylephrine (From Allergy Swelling Verified 09/12/23 10:26 Herbert-Synephrine (phenylephrine)) ragweed pollen Allergy Verified 09/12/23 10:26 tomato Allergy Verified 09/12/23 10:26 Dust mites Allergy Uncoded 09/12/23 10:26 Soybean oil Allergy Uncoded 09/12/23 10:26 Review of Systems Status of ROS: Reports: 10 or more systems reviewed and unremarkable except as noted in History and below PFSH PFS Medical History History of sepsis (2010) ?Z86.19 - Personal history of other infectious and parasitic diseases (ICD- 10) History of peptic ulcer (2014) ?Z87.11 - Personal history of peptic ulcer disease (ICD-10) Surgical History History of basal cell carcinoma excision ?Z98.890 - Other specified postprocedural states (ICD-10) ?Z85.828 - Personal history of other malignant neoplasm of skin (ICD-10) Status post lumbar spinal fusion (04/19/11) ?Z98.1 - Arthrodesis status (ICD-10) Status post cataract extraction (2015) ?Z98.49 - Cataract extraction status, unspecified eye (ICD-10) Squamous cell carcinoma in situ (SCCIS) of skin (2018) ?D04.9 - Carcinoma in situ of skin, unspecified (ICD-10) Rotator cuff tear arthropathy of right shoulder (2014) ?M75.101 - Unspecified rotator cuff tear or rupture of right shoulder, not specified as traumatic (ICD-10) ?M12.811 - Other specific arthropathies, not elsewhere classified, right shoulder (ICD-10) History of total shoulder replacement (2017) ?Z96.619 - Presence of unspecified artificial shoulder joint (ICD-10) History of total knee replacement (2004) ?Z96.659 - Presence of unspecified artificial knee joint (ICD-10) History of tonsillectomy (04/19/11) ?Z90.89 - Acquired absence of other organs (ICD-10) History of thumb surgery (07/05/18) ?Z98.890 - Other specified postprocedural states (ICD-10) History of repair of rectocele (2018) ?Z98.890 - Other specified postprocedural states (ICD-10) History of laminectomy (04/19/11) ?Z98.890 - Other specified postprocedural states (ICD-10) History of dilation and curettage (04/19/11) ?Z98.890 - Other specified postprocedural states (ICD-10) History of cholecystectomy (04/19/11) ?Z90.49 - Acquired absence of other specified parts of digestive tract (ICD-1 0) Social History What is your current living situation?: I presently have a place to live Problems where you live: no known problems In the past 12 months, utilities in danger of being shut off: no In the past 12 mos, have been you worried that your food would run out before you had money to buy more?: never true In the past 12 mos, the food you bought just didn't last and you didn't have money to buy more?: never true Smoking Status: Never smoker How often does anyone, including family, friends and others, physically hurt you : never How often does anyone, including family, friends and others, insult or talk down to you: never How often does anyone, including family, friends and others, threaten you with harm: never How often does anyone, including family, friends and others, scream or curse at you: never Exam Narrative: Exam Narrative: Const: Well-nourished, Well-developed, in no distress Eyes: PERRL, no conjunctival injection, and symmetrical lids HENT: Atraumatic external nose and ears. Moist mucous membranes. Neck: Symmetric, trachea midline, No thyromegaly. CVS: RRR, No murmurs or gallops. Peripheral pulses 2+ and equal in all extremities RESP: Unlabored respiratory effort. Clear to auscultation bilaterally. GI: Nontender/Nondistended, No rebound or guarding. Extremities: Severe lymphedema noted to bilateral lower extremities are with +3 pitting edema in bilateral feet. Rest to leg is in a wrap at this time like. MSK:Extremities w/o deformity, Normal Active ROM Skin: Warm, Dry. small wound noted to the dorsal aspect of the right midfoot and just proximal to the webspace between the 1st and 2nd toes on the left. Minimal erythema around both sites Neuro: Normal Muscle tone, No focal neurological deficits. Psych: Awake, Alert, & Oriented x3. Appropriate mood and affect. Const: Vital Signs, click to edit/add: Vital Signs - 24 hr 05/16/24 15:12 05/16/24 16:19 05/16/24 16:21 Temperature 97.8 F Pulse Rate 69 71 Pulse Rate [Pulse Oximeter] 93 Respiratory Rate 20 16 Blood Pressure 179/97 H Blood Pressure [Ri ght Upper Arm] 177/88 H Pulse Oximetry 93 94 100 Oxygen Delivery Me thod Room Air 05/16/24 16:22 05/16/24 16:30 05/16/24 16:32 Temperature Pulse Rate 66 57 L 58 L Pulse Rate [Pulse Oximeter] Respiratory Rate Blood Pressure 167/87 H Blood Pressure [Ri ght Upper Arm] Pulse Oximetry 99 99 99 Oxygen Delivery Me thod 05/16/24 16:45 05/16/24 17:00 05/16/24 17:02 Temperature Pulse Rate 60 60 59 L Pulse Rate [Pulse Oximeter] Respiratory Rate Blood Pressure 157/86 H Blood Pressure [Ri ght Upper Arm] Pulse Oximetry 99 98 99 Oxygen Delivery Me thod Course Vital Signs Vital signs: Initial Vital Signs Temperature 97.8 F 05/16/24 15:12 Temperature Source Temporal Artery Scan 05/16/24 15:12 Pulse Rate 93 05/16/24 15:12 Respiratory Rate 20 05/16/24 15:12 Blood Pressure 177/88 H 05/16/24 15:12 Blood Pressure Mean 117 H 05/16/24 15:12 Pulse Oximetry 93 05/16/24 15:12 Oxygen Delivery Method Room Air 05/16/24 15:12 Vital Signs Temperature 97.8 F 05/16/24 15:12 Pulse Rate 93 05/16/24 15:12 Respiratory Rate 20 05/16/24 15:12 Blood Pressure 177/88 H 05/16/24 15:12 Pulse Oximetry 93 05/16/24 15:12 Oxygen Delivery Method Room Air 05/16/24 15:12 Temperature 97.8 F 05/16/24 15:12 Pulse Rate 59 L 05/16/24 17:02 Respiratory Rate 16 05/16/24 16:21 Blood Pressure 157/86 H 05/16/24 17:02 Pulse Oximetry 99 05/16/24 17:02 Oxygen Delivery Method Room Air 05/16/24 15:12 Medical Decision Making [facility] Narrative Medical decision making narrative: patient is an 84-year-old female presenting for bilateral feet swelling. Swelling has improved over the past few days she states. Seems unlikely this is a bilateral DVT considering she ready has the severe lymphedema and most likely is related to that. Differential includes but not limited to CHF, infection, nephrotic syndrome. Will also check a EKG, chest x-ray, BNP, CBC, TSH, urinalysis, troponin Lab work shows no concerning abnormalities. Chest x-ray reviewed by myself and the radiologist shows no concerning findings. Very trace leukocyte esterases and 5-10 white blood cells but she is having no UTI symptoms. There are no protein in urine and nephrotic syndrome seems unlikely. On my review vital signs are stable throughout time in in the emergency department. Oximetry stayed in the mid to high 90s. playground monitor showed no concerning arrhythmias. She is doing well and can be discharged home. She is agreeable to this plan Lab Data Labs: Lab Results 05/16/24 05/16/24 05/16/24 Range/Units 16:00 16:21 16:30 WBC 8.17 (4.50-11.00) K/uL RBC 3.98 L (4.00-5.20) m/uL Hgb 12.0 (12.0-16.0) gm/dL Hct 38.6 (33.0-51.0) % MCV 97 (80-100) fL MCH 30 (26-34) pg MCHC 31 L (32-36) gm/dL RDW Coeff of Farideh 14.4 (11.5-15.5) % Plt Count 208 (140-440) K/uL Neut % (Auto) 71.9 (42.0-72.0) % Lymph % (Auto) 15.5 L (20-44) % [place] % (Auto) 10.2 (0.0-11.0) % Eos % (Auto) 1.7 (0.0-7.0) % Baso % (Auto) 0.5 (0.0-3.0) % Neut # (Auto) 5.87 (1.7-7.0) K/uL Lymph # (Auto) 1.30 (0.90-2.90) K/uL [place] # (Auto) 0.80 (0.00-0.90) K/UL Eos # (Auto) 0.14 (0.00-0.50) K/uL Baso # (Auto) 0.04 (0.00-0.30) K/uL Abs Immat Gran (auto) 0.02 (0.00-0.30) K/uL Imm/Tot Granulo (auto) 0.2 % Sodium 137 (135-149) mmol/L Potassium 4.3 (3.6-5.1) mmol/L Chloride 105 (96-114) mmol/L Carbon Dioxide 25 (20-32) mmol/L Anion Gap 7 (7-15) mEq/L BUN 31 H (7-30) mg/dL Creatinine 0.8 (0.5-1.5) mg/dL Estimated Creat Clear 30.62 Estimated GFR 73 ml/min Glucose 131 H (60-115) mg/dL Calcium 9.4 (8.4-10.6) mg/dL Total Bilirubin 0.2 (0.1-1.5) mg/dL AST 20 (12-35) U/L ALT 11 (4-35) U/L Alkaline Phosphatase 99 (40-150) U/L Troponin I < 0.01 L (0.01-0.04) ng/mL NT-Pro-B Natriuret Pep 294 pg/mL Total Protein 6.7 (6.0-8.3) g/dL Albumin 3.8 (3.3-5.0) g/dL TSH 1.440 (0.270-4.200) uIU/mL Urine Color Yellow (Yellow) Urine Appearance Clear (Clear) Urine pH 5.5 (5.0-8.5) Ur Specific [place] 1.020 (1.000-1.030) Urine Protein Negative (Negative) Urine Glucose (UA) Negative (Negative) Urine Ketones Negative (Negative) Urine Blood Negative (Negative) Urine Nitrite Negative (Negative) Urine Bilirubin Negative (Negative) Urine Urobilinogen 0.2 (0.2-1.0) Ur Leukocyte Esterase Trace A (Negative) Urine RBC 0-2 (0-2) Urine WBC 5-10 A (0-5) Ur Squamous Epith Cells None (None-Few) Urine Bacteria Few A (None) Lab Acknowledgement Test Added ECG Data Attestation: I personally reviewed and interpreted this ECG as follows: Prior ECG tracings: not available for review Interpretation: He sinus bradycardia with a rate of 57 beats per minute, normal intervals, normal axis, no ST or T-wave abnormalities Discharge Plan Discharge Clinical Impression: Lymphedema Instructions: Lymphedema (ED) Additional Instructions: Keep a close eye on the the blisters on her feet to make sure they do not become infected. Follow-up with the primary care provider. Return for new or worsening symptoms. Prescriptions: No Action melatonin 5 mg capsule 20 mg PO .Bedtime as needed PRN hzshjgx-zxbuexorxjahh-xynvrjni 250-250-65 mg tablet 1 tab PO Q6H PRN calcium carbonate 600 mg calcium (1,500 mg) tablet 600 mg PO BID fexofenadine 180 mg tablet 180 mg PO DAILY multivitamin [Multiple Vitamins] Tablet 1 tab PO QAM iyclmhec-axioknnsmyb-mwo C-Mn PO DAILY Lactobacillus acidophilus 1 billion cell capsule 10 mg PO QDAY capsaicin 0.1 % cream 0.1 applic topical .As Needed PRN turmeric 400 mg capsule 630 mg PO DAILY cholecalciferol (vitamin D3) 50 mcg (2,000 unit) tablet 50 mcg PO QDAY guaifenesin [Mucinex] 1,200 mg tablet extended release 12hr 1,200 mg PO QHS prednisone 20 mg tablet 20 mg PO QDAY Qty: 7 0RF esomeprazole magnesium 40 mg capsule,delayed release(DR/EC) 40 mg PO BID Qty: 180 3RF epinephrine 0.3 mg/0.3 mL auto-injector 0.3 mg IM ONCE PRN (Reason: anaphylaxis) Qty: 2 1RF Rx Instructions: as a single dose; may repeat once sumatriptan succinate 50 mg tablet 50 mg PO Q2H PRN (Reason: migraine headache) Qty: 9 3RF Rx Instructions: do not exceed 4 doses per 24 hrs olopatadine 0.1 % drops 1 drp ophthalmic (eye) QDAY amitriptyline 10 mg tablet 20 mg PO QPM Qty: 180 3RF atenolol 50 mg tablet 50 mg PO QDAY Qty: 90 3RF gabapentin 600 mg tablet 600 mg PO QHS Qty: 90 3RF amiloride-hydrochlorothiazide 5-50 mg tablet 0.5 tab PO QDAY Qty: 45 3RF gabapentin 300 mg capsule 300 mg PO BID Qty: 180 2RF fluticasone propionate 50 mcg/actuation spray,suspension 1 spray intranasal BID Qty: 16 9RF potassium chloride 10 mEq capsule, extended release 20 meq PO QDAY Qty: 180 2RF levothyroxine 150 mcg tablet 150 mcg PO QDAY Qty: 90 3RF Dulera 200-5 mcg/actuation HFA aerosol inhaler 2 puff inhalation BID Qty: 8.8 11RF montelukast 10 mg tablet 10 mg PO QDAY Qty: 90 1RF Follow Up/Referrals: Ina Rosas MD [Primary Care Provider] - Stand Alone Forms: [facility] Info Instructions
[2024-05-16 16:26] LABS: Potassium* 4.3 mmol/L (3.6-5.1); Slide Review Reflex No; Sodium* 137 mmol/L (135-149)
[2024-05-16 16:28] LABS: Anion Gap 7 mEq/L (7-15); Aspartate Amino Transferase* 20 U/L (12-35); Bilirubin Total* 0.2 mg/dL (0.1-1.5); Carbon Dioxide* 25 mmol/L (20-32); Creatinine* 0.8 mg/dL (0.5-1.5); Est. Creatinine Clearance* 30.62; Estimated Glomerular Filt Rate 73 ml/min
[2024-05-16 16:29] LABS: Alanine Aminotransferase* 11 U/L (4-35); Alkaline Phosphatase* 99 U/L (40-150); Blood Urea Nitrogen* 31 mg/dL (7-30); Calcium* 9.4 mg/dL (8.4-10.6); Glucose* 131 mg/dL (60-115); Total Protein* 6.7 g/dL (6.0-8.3)
[2024-05-16 16:32] LABS: Appearance Urine Clear (Clear); Bilirubin Urine Negative (Negative); Blood Urine Negative (Negative); Color Urine Yellow (Yellow); Glucose Urine Negative (Negative); Ketones Urine Negative (Negative); Leukocyte Esterase Urine Trace (Negative); Nitrite Urine Negative (Negative); Protein Urine Negative (Negative); Urobilinogen Urine 0.2 (0.2-1.0); pH Urine 5.5 (5.0-8.5)
[2024-05-16 16:39] LABS: NT Pro B Type NatriureticPept* 294 pg/mL
[2024-05-16 16:47] LABS: Bacteria Urine Few; RBC Urine 0-2 (0-2)
[2024-05-16 17:23] LABS: Troponin I* < 0.01 ng/mL (0.01-0.04)
== END 2024-05-16 18:23 | disposition home or self-care (01) ==
PROVIDERS: Emergency Provider Student in an Organized Health Care Education/Training Program; PCP Internal Medicine
DX: I89.0 Lymphedema, not elsewhere classified (principal); R82.90 Unspecified abnormal findings in urine
CPT/HCPCS: 36415; 71045; 80053; 81001; 83880; 84443; 84484; 85025; 87086; 87186; 93005; 99283; 99284; 99285

== ENCOUNTER 2024-05-16 18:58 | Outpatient (CLI) | payer OTHER, SELFPAY ==
--- OUTSIDE RECORDS SUMMARY | 2024-05-17 23:47 | XMS_ITS | Clinical Summary ---
Author Organization [facility] Address [place], [place] [address] Care Team Providers Care Digital Community Manager Name Role Phone Ina Rosas MD Primary Care Provider [phone] Allergies Active Allergy Reactions Criticality Noted Date [...] Problems Problem Noted Date Diagnosed Date KHUSHBU 2/3/84067 AHI- 15 03/22/2024 Encounters Date Type Department Care Team Description 03/22/2024 11:30 AM CDT Office Visit [facility] [address] [place] [address] Tulio Redmond MD Sleep Follow-up 03/22/2024 Travel [...] 10/19/2023, 04/01/2023, Additional history exists Care Teams Digital Community Manager Relationship Specialty Start Date End Date Ina Rosas MD [address] [place] [id number] PCP - General Internal Medicine 05/06/16
== END 2024-05-16 18:59 | disposition home or self-care (01) ==
LOC: AMB 05-17 23:45
PROVIDERS: PCP Internal Medicine; Visit Provider Family Medicine
DX: R53.1 Weakness (principal); E66.01 Morbid (severe) obesity due to excess calories
CPT/HCPCS: A0998

== ENCOUNTER 2024-08-28 11:27 | Outpatient (CLI) | payer OTHER, SELFPAY | END 2024-08-28 11:28 | disposition home or self-care (01) | PROVIDERS: PCP Internal Medicine; Visit Provider Internal Medicine | DX: I89.0 Lymphedema, not elsewhere classified (principal) | CPT/HCPCS: 80053 ==

== ENCOUNTER 2024-10-26 09:20 | Outpatient (CLI) | payer OTHER, SELFPAY | END 2024-10-26 09:21 | disposition home or self-care (01) | LOC: NFLDREF 11-01 18:03 | PROVIDERS: PCP Internal Medicine; Referring Provider Internal Medicine; Visit Provider Internal Medicine | DX: E11.9 Type 2 diabetes mellitus without complications (principal); E03.9 Hypothyroidism, unspecified; I10 Essential (primary) hypertension | CPT/HCPCS: 80048; 82043; 82570; 84443 ==

== ENCOUNTER 2024-12-11 13:00 | Outpatient (RCR) | payer OTHER, SELFPAY ==
--- NOTE | 2024-06-05 17:51 | OT.OPLE2 ---
OT Outpatient Lymphedema Eval* OT Outpatient Lymphedema Eval* Start: 06/05/24 16:58 Freq: Status: Active Protocol: Document 06/05/24 17:01 ELTON (Rec: 06/05/24 17:07 JLEdgar [id number]) E-signed By Sherie Muro, OTR/L, CLT OT Outpatient Evaluation Details Type Type Eval Complexity Low Insurance Information Insurance Information Insurance Information [employer] OT OP Lymphedema Evaluation Current Condition/Medical Diagnosis Referring Provider Ina Rosas MD Medical Diagnoses I89.0 Lymphedema Treatment Diagnosis R22.43 Localized swelling, mass and lump, lower limb, bilateral E88.28 Lipedema unspecified R60.9: Swelling or edema Date Of Onset unknown <8 yrs Medical Contraindications DM,HTN,CA,Respiratory, Fibromyalgia,Arthritis Medical History Medical History Cancer Treatment/Surgery, Obesity,DM,Allergies (Latex or Other),HTN,Arthritis Surgical History Surgical History Cataracts, rotator cuff tear, TKA bilateral (2004), TSA ( 2017), basal cell carcinoma removal, lumbar spinal fusion (2010), bilateral mastectomy ( 2009). Medications Medications Started Lasix on 06/04/24, 5 day Rx Family History Family History of Lymphedema No Current Work Status Current Work Status Retired Subjective Subjective It takes me so long to wrap my legs, its getting harder to do and my legs are swelling more Living Situation Current Living Situation Private Home/Apartment (Alone) Current Living Situation Comments Condo co-op, lives alone, has family near by that can assist as needed. Patient Difficulties Difficulties With Any Of The Following Walking,Dressing,Reaching Feet & Toes,Bathing/Showering, Preparing Meals,Sleeping In Bed Impairments Impairments Loss of Mobility,Difficulties With ADLs,Limb Heaviness,Poor Clothing Fit Problem List Problem List Significant Risk For Infection For Lymphedema Related Complications,Does Not Have a HEP,Does Not Know How To Bandage For Limb Reduction, Does Not Have Appropriate Compression Garments For LT Management,Presents With Increased Fall Risk Secondary To Lymphedema,Presents With Impaired Mobility/ROM Exercise History Does Patient Exercise Regularly No Pain Pain Yes ROM/Strength ROM/Strength Comments Hip, knee and ankle ROM deficits due to size of limb, below functional limits. Previous Treatment Previous Treatment For Swelling/ MLD,Compression Pump, Lymphedema Compression Garment,Multi- Layer Compression Bandages, Exercise,Elevation,Self Massage Compression History Does Patient Currently Wear Compression Yes During Daytime Compression During Daytime Comments combo of ready wraps and short stretch bandages Does Patient Currently Wear Compression No At Night Current Swelling (Location/Pitting/Texture) Pitting Scale: 0 = No pitting 1+ Tissue returns to normal almost immediately 2+ Tissue returns after 15-30 seconds 3+ Tissue returns after 1-1/2 minutes 4+ Tissue returns after 2-3 minutes N/A Tissue no longer pits due to induration Tissue texture: Soft or indurated Clinical Presentation Pitting/Texture Pt?s bilateral lower extremities present with significant and chronic lipo- lymphedema from distal foot and toes to thighs. Trace edema on toes and feet with newly healing blisters on L foot. Pt presents with hallmark cuff of fluid filled tissue over the ankles that is commonly attributed to lipedema. Skin is intact. No lymphorrhea present; both limbs bilaterally mildly fibrotic, limited skin stretch . no hair present; toe nails thick. 4+ pitting throughout bilateral limbs. Skin Changes Hemosiderin Staining, Hyperkeratosis,Papillomas, Stasis Dermatitis,Toe/Foot Deformities,Fibrosis,Limited Skin Mobility Positive Stemmer's Sign Yes Capillary Refill Slow Lymphedema/Lipedema/CVI Lymphedema and Lipedema combination Type of Swelling Secondary Staging Staging Stage 2 Circumferential Measurements Lower Extremity Left Lower Extremity MTP (in cm) 23 Arch (in cm) 24.5 Calcaneus (in cm) 31.5 10 cm above Calcaneus Measurement 48 20 cm above Calcaneus Measurement 61.5 30 cm above Calcaneus Measurement 69.5 40 cm above Calcaneus Measurement 71 50 cm above Calcaneus Measurement 84 60 cm above Calcaneus Measurement 82 Total Girth in cm 495.0 Right Lower Extremity MTP (in cm) 20 Arch (in cm) 21.5 Calcaneus (in cm) 30 10 cm above Calcaneus Measurement 48 20 cm above Calcaneus Measurement 61 30 cm above Calcaneus Measurement 69 40 cm above Calcaneus Measurement 70 50 cm above Calcaneus Measurement 82 60 cm above Calcaneus Measurement 80 Total Girth in cm 481.5 Assessment Assessment Pt is an 84 yr female who presents following a PCP visit which followed an ER trip for new wound areas on L foot and increased swelling in B LE. Pt carries a lymphedema dx and participated in OP Lymph Therapy as recent as 15 months ago. Pt has been dilegent with her home programming of using her compression pump, and completing her daily wrapping, however her swelling has increased and blisters began to form on her L foot. Pt was placed on lasix and ordered to resume lymphedema therapy. Patient referred for lymphedema evaluation and treat as indicated due to painful and swollen BLEs. Pt is limited by pain, and lymphedema in B LE causing a significant hardship in her home and work life. Skilled OT for lymphedema is indicated at this time to decrease edema and pain. Pt will benefit from decongestive therapy, education on skin care and integrity, home program and home exercise; all in order to increase ability to safely participate in functional mobility, ADLs and IADLs. Patient Goals Patient Goals Goal: Patient and or caregiver will understand lymphedema precautions to decrease risk of infection and further lymphedema related complications Goal: Patient will develop a tolerance for wearing multi- layer, short stretch bandages between treatment sessions to facilitate limb decongestion Goal: Patient will experience decreased pitting edema in order to improve tissue health and decrease risk for infection/cellulitis Goal: Patient will perform HEP with minimal assistance in order to improve lymphatic flow and venous return Goal: Patient will perform self MLD protocol with minimal assistance to help reduce swelling and improve ROM and mobility Treatment Plan Treatment Plan Evaluation,Edema Control,Joint Mobilization,Manual Therapy, Therapeutic Exercise, Therapeutic Activities,Self- Care/Home Management,Caregiver Training,Education Expected Frequency 1-2x Week Expected Duration 4-6 Weeks Certification Certification Statement I Certify That: Therapy Services Provided, Therapy Plan Established, Therapy Plan Reviewed Certification Information Clinic ID # [id number] Initial Certification Date 06/05/24 Recertification Due Date 09/03/24 Provider Signature Required Yes Provider Signature Shows Agreement With POC & Medical Necessity Physician NPI Number Write NPI# Here Physician Comment/Change Comment or Changes Physician Signature & Date Requested Please Sign/Date Here
== END 2025-04-10 23:59 | disposition home or self-care (01) ==
PROVIDERS: PCP Internal Medicine; Visit Provider Internal Medicine
DX: I89.0 Lymphedema, not elsewhere classified (principal); R22.43 Localized swelling, mass and lump, lower limb, bilateral; Z51.89 Encounter for other specified aftercare
CPT/HCPCS: 97110; 97140; 97165; 97530; 97535; X5282